=== PATIENT | female | born 1990 | race Caucasian/White ===

== ENCOUNTER 2016-09-28 06:41 | Day surgery (SDC) | payer OTHER ==
[2016-09-25 13:24] LABS: HEMATOCRIT 40.6 % (36.0-47.0); HEMOGLOBIN 13.7 g/dL (12.0-15.5); HGB HCT DIFFERENCE 0.5; MEAN CORPUSCULAR HGB CONC 33.8 g/dL (32.0-36.0); MEAN CORPUSCULAR VOLUME 89 fl (80-97); RED BLOOD COUNT 4.58 10^6/uL (3.72-5.28); RED CELL DISTRIBUTION WIDTH 12.9 % (11.5-14.0); WHITE BLOOD COUNT 8.1 10^3/uL (4.0-10.5)
[2016-09-25 13:25] LABS: APPEARANCE,URINE CLEAR; BILIRUBIN,URINE NEGATIVE (NEGATIVE); GLUCOSE, URINE NEGATIVE (NEGATIVE); KETONES,URINE NEGATIVE (NEGATIVE); LEUKOCYTE ESTERASE,URINE NEGATIVE (NEGATIVE); NITRITE,URINE NEGATIVE (NEGATIVE); PROTEIN,URINE NEGATIVE (NEGATIVE); URINE SPECIFIC GRAVITY 1.005; UROBILINOGEN,URINE NEGATIVE mg/dL (<2.0)
--- NOTE | 2016-09-25 15:32 | EKG REPORT ---
SEVERITY:- NORMAL ECG - SINUS RHYTHM : Confirmed by: Clarence Horta MD 25-Sep-2016 15:31:49
[~2016-09-28 06:41] MED LIST: LACTATED RINGERS 1000 ML IV PRN; LIDOCAINE 0.5% INJ-PF (5 MG/ML) 50 ML SDV SUBCUT PRN
[2016-09-28] MEDS ORDERED: MIDAZOLAM 2 MG/2 ML INJ ONE (08:35)
[2016-09-28] MEDS ORDERED: FENTANYL CITRATE INJ/PF 100 MCG/2 ML AMPUL ONE (08:35)
[2016-09-28] MEDS ORDERED: PROPOFOL INJ 200 MG/20 ML VIAL IV ONE (08:36)
[2016-09-28] MEDS ORDERED: DEXAMETHASONE SOD PHOSPHATE INJ 4 MG/1 ML VIAL ONE (08:36)
[2016-09-28] MEDS ORDERED: ONDANSETRON HCL INJ/PF 4 MG/2 ML SDV ONE (08:36)
[2016-09-28] MEDS ORDERED: MORPHINE SULFATE 10 MG/ML INJ IV PRN (09:02)
[2016-09-28] MEDS ORDERED: DIPHENHYDRAMINE HCL 50 MG/ML VIAL IV PRN (09:02)
[2016-09-28] MEDS ORDERED: CEFAZOLIN INJ 1 GM VIAL ONE (09:02)
[2016-09-28] MEDS ORDERED: PROMETHAZINE HCL INJ 25 MG/1 ML VIAL IV PRN ×2 (09:02)
[2016-09-28] MEDS ORDERED: MEPERIDINE HCL/PF INJ 25 MG/1 ML DISP.SYRIN IV PRN (09:02)
[2016-09-28] MEDS ORDERED: FENTANYL CITRATE INJ/PF 100 MCG/2 ML AMPUL IV PRN ×3 (09:02)
[2016-09-28] MEDS ORDERED: OXYCODONE-ACETAMINOPHEN 5-325 MG TABLET PO PRN ×2 (09:02)
[2016-09-28] MEDS ORDERED: ACETAMINOPHEN 100 ML IV ONE (09:45)
[2016-09-28] MEDS ORDERED: OXYCODONE HCL IR 5 MG TABLET PO PRN ×2 (10:30)
[2016-09-28] MEDS ORDERED: IBUPROFEN 800 MG TABLET PO PRN (10:30)
[2016-09-28] MEDS ORDERED: RINGERS SOLUTION,LACTATED 1,000 ML IV PRN (10:30)
[2016-09-28] MEDS ORDERED: HYDROMORPHONE HCL INJ/PF 2 MG/ML AMPULE IV PRN (10:30)
--- NOTE | 2016-09-28 10:38 | OPERATIVE REPORT E ---
Operative Report NAME: JAMIE HILL : 1990 AGE: 26Y DATE OF SURGERY: 09/28/2016 ROOM: PREOPERATIVE DIAGNOSIS: ABNORMAL UTERINE BLEEDING. POSTOPERATIVE DIAGNOSIS: ABNORMAL UTERINE BLEEDING. OPERATION: Hysteroscopy with dilatation and curettage. SURGEON: GALI HUTCHINS M.D. ANESTHESIA: General. ESTIMATED BLOOD LOSS: 5 mL. FINDINGS: Retroverted uterus, slightly irregular tissue in the lower uterine segment. Possible polyp, will rule out hyperplastic tissue. DESCRIPTION OF PROCEDURE: After discussing risks, benefits and alternatives of the procedure and obtaining informed consent, the patient was taken to the operating room where general anesthesia was achieved. She was positioned in the dorsal lithotomy position, prepped and draped in the usual standard fashion. Bladder was drained via in-and-out catheterization. The speculum was placed in the vagina. A single-tooth tenaculum was placed on the inferior aspect of the cervix as the uterus was retroverted. The cervix was then serially dilated to allow for passage of the MyoSure scope. The hysteroscope was placed and the cavity surveyed. The hysteroscope was removed and the cavity was curetted until it felt clean. The hysteroscope was replaced and the cavity was confirmed to be clean. The tenaculum was removed and hemostasis assured. Instruments were removed from the vagina. The patient was awakened from anesthesia and taken out of dorsal lithotomy position. She was taken to recovery in stable condition. DICTATING PHYSICIAN: GALI HUTCHINS M.D. [id number] PHY#: [id number] ID: [id number] JOB#: [id number] ACCT: [id number] cc:GALI HUTCHINS M.D. >
[2016-09-28 11:15] VITALS: BP 102/61
[2016-09-28] MEDS ORDERED: KETOROLAC TROMETHAMINE 60 MG/2 ML SDV ONE (14:24)
== END 2016-09-28 11:10 | disposition home or self-care (01) ==
LOC: OROUT 06:41
PROVIDERS: ATTEND Specialist
PROC: 0UDB8ZX Extraction of Endometrium, Via Natural or Artificial Opening Endoscopic, Diagnostic (ICD-10-PCS; principal; 2016-09-28 08:45)
DX: N93.9 Abnormal uterine and vaginal bleeding, unspecified (principal); D39.9 Neoplasm of uncertain behavior of female genital organ, unspecified
CPT/HCPCS: 93005; 36415; 85027; 81025; 81001; 88305 ×2; 93010; 58558; J2250; J0690; J1100; J1885; J3010; J2405; J2704; J0131; 952

== ENCOUNTER 2017-02-12 07:25 | Day surgery (SDC) | payer OTHER ==
[2017-02-05 11:25] LABS: HEMATOCRIT 41.2 % (36.0-47.0); HEMOGLOBIN 13.8 g/dL (12.0-15.5); HGB HCT DIFFERENCE 0.2; MEAN CORPUSCULAR HEMOGLOBIN 29.7 pg (27.0-33.4); MEAN CORPUSCULAR HGB CONC 33.6 g/dL (32.0-36.0); MEAN CORPUSCULAR VOLUME 89 fl (80-97); RED BLOOD COUNT 4.65 10^6/uL (3.72-5.28); RED CELL DISTRIBUTION WIDTH 12.5 % (11.5-14.0); WHITE BLOOD COUNT 6.1 10^3/uL (4.0-10.5)
[2017-02-05 11:27] LABS: APPEARANCE,URINE CLEAR; BILIRUBIN,URINE NEGATIVE (NEGATIVE); GLUCOSE, URINE NEGATIVE (NEGATIVE); KETONES,URINE NEGATIVE (NEGATIVE); LEUKOCYTE ESTERASE,URINE NEGATIVE (NEGATIVE); NITRITE,URINE NEGATIVE (NEGATIVE); PROTEIN,URINE NEGATIVE (NEGATIVE); URINE SPECIFIC GRAVITY 1.012; UROBILINOGEN,URINE NEGATIVE mg/dL (<2.0)
[2017-02-05 11:49] LABS: ALANINE AMINOTRANSFERASE 22 U/L (9-52); ALBUMIN 4.4 g/dL (3.5-5.0); ALKALINE PHOSPHATASE 56 U/L (38-126); ANION GAP 10 (5-19); ASPARTATE AMINO TRANSFERASE 15 U/L (14-36); BILIRUBIN,DIRECT 0.2 mg/dL (0.0-0.4); BILIRUBIN,TOTAL 0.6 mg/dL (0.2-1.3); BLOOD UREA NITROGEN 11 mg/dL (7-20); CALCIUM 10.4 mg/dL (8.4-10.2); CARBON DIOXIDE 27 mmol/L (22-30); CHLORIDE 103 mmol/L (98-107); CREATININE RESULT 0.64 mg/dL (0.52-1.25); GLUCOSE 88 mg/dL (75-110); POTASSIUM 4.6 mmol/L (3.6-5.0); SODIUM 140.4 mmol/L (137-145); TOTAL PROTEIN 8.2 g/dL (6.3-8.2)
[~2017-02-12 07:25] MED LIST changes: +CEFAZOLIN 2 GM/D5W RTU 2 GM/50 ML RTUPB IV PRN
[2017-02-12] MEDS ORDERED: BUPIVACAINE HCL 0.25% /EPINEPHRINE INJ/PF 30 ML SDV ONE (07:26)
[2017-02-12] MEDS ORDERED: FENTANYL CITRATE INJ/PF 250 MCG/5 ML AMPULE ONE (09:29)
[2017-02-12] MEDS ORDERED: EPHEDRINE SULFATE INJ 50 MG/1 ML AMPULE ONE (09:30)
[2017-02-12] MEDS ORDERED: MIDAZOLAM 2 MG/2 ML INJ ONE (09:30)
[2017-02-12] MEDS ORDERED: PROPOFOL INJ 200 MG/20 ML VIAL IV ONE (09:30)
[2017-02-12] MEDS ORDERED: ACETAMINOPHEN 100 ML IV ONE (09:31)
[2017-02-12] MEDS ORDERED: MORPHINE SULFATE 10 MG/ML INJ ONE (09:31)
[2017-02-12] MEDS ORDERED: MORPHINE SULFATE 10 MG/ML INJ IV PRN (10:14)
[2017-02-12] MEDS ORDERED: FENTANYL CITRATE INJ/PF 100 MCG/2 ML AMPUL IV PRN ×3 (10:14)
[2017-02-12] MEDS ORDERED: DIPHENHYDRAMINE HCL 50 MG/ML VIAL IV PRN (10:14)
[2017-02-12] MEDS ORDERED: MEPERIDINE HCL/PF INJ 25 MG/1 ML DISP.SYRIN IV PRN (10:14)
[2017-02-12] MEDS ORDERED: ONDANSETRON HCL INJ/PF 4 MG/2 ML SDV IV PRN ×2 (10:14→12:37)
[2017-02-12] MEDS ORDERED: IBUPROFEN INJ 800 MG/8 ML VIAL IV ONE (11:01)
--- NOTE | 2017-02-12 11:37 | OPERATIVE REPORT E ---
Operative Report NAME: JAMIE HILL : 1990 AGE: 26Y DATE OF SURGERY: 02/12/2017 ROOM: PREOPERATIVE DIAGNOSIS: Abnormal uterine bleeding. POSTOPERATIVE DIAGNOSIS: Abnormal uterine bleeding. OPERATION PERFORMED: Total vaginal hysterectomy with bilateral salpingectomy. SURGEON: GALI HUTCHINS M.D. ANTIQUE AUTOMOBILES REPAIRER: Carlos ANESTHESIA: General endotracheal. ESTIMATED BLOOD LOSS: 150 mL. FINDINGS: Uterus was somewhat boggy and retroverted. Bilateral fallopian tubes appeared normal. There was a right hemorrhagic ovarian cyst that spontaneously drained during the procedure; this was cauterized for hemostasis. DESCRIPTION OF PROCEDURE: After discussing risks, benefits, and alternatives of the procedure and obtaining informed consent, the patient was taken to the operating room where general anesthesia was achieved. She was positioned in the dorsal lithotomy position and prepped and draped in the usual standard fashion. Holden catheter was placed to keep the bladder drained. A weighted speculum was placed in the vagina. A Armin was placed anteriorly. The cervix was grasped with 2 single-tooth tenacula. The cervical junction was injected circumferentially with 0.25% Marcaine with epinephrine. A circumferential cervical incision was made. The anterior peritoneal cavity was entered sharply and a [place] placed for protection of the bladder. Next, attention was turned to the posterior cul-de-sac. The peritoneum was identified and entered sharply. Each uterosacral ligament was grasped with a Demetrio clamp, cut, and suture ligated. A weighted speculum was placed in the posterior cul-de-sac to protect the rectum. The uterine arteries were then serially clamped, coagulated and cut with the LigaSure Impact device. This was done until the level of the fundus was approached. At that point a towel clip was placed on the posterior aspect of the uterus. The uterus was inverted. The upper pedicles were clamped with Demetrio clamps on either side. The side near the uterus was then coagulated and cut with the LigaSure Impact. A straight tie was placed around the upper pedicle on either side. An area of oozing was noted above the uterosacral ligament on either side but inferior to the upper pedicles and hemostasis was achieved with [id number] of Monocryl on either side. Using the sponge stick to push bowel away and Babcocks to grasp the distal tubes, each distal fallopian tube was grasped at the fimbriated end. The LigaSure Impact device was used to excise this on either side. Hemostasis was observed. The area of oozing on the patient's right ovary was noted and this was cauterized with the LigaSure Impact device and hemostasis noted. The long speculum was then removed and a shorter speculum placed. The peritoneum was closed with 2-0 Vicryl, taking care to close off the posterior peritoneum to prevent future enterocele formation. The uterosacral ligaments were then plicated in the midline. The cuff was closed with interrupted [id number] of 0 Monocryl. The vagina was irrigated and hemostasis assured. The weighted speculum was removed. The patient was taken out of dorsal lithotomy and extubated. She was taken to recovery in stable condition. All sponge, needle, lap and instrument counts were correct x2. DICTATING PHYSICIAN: GALI HUTCHINS M.D. [id number] PHY#: [id number] ID: [id number] JOB#: [id number] ACCT: [id number] cc:GALI HUTCHINS M.D. > MTDD
[2017-02-12] MEDS ORDERED: HYDROMORPHONE HCL INJ/PF 2 MG/ML AMPULE IV PRN ×2 (12:37)
[2017-02-12] MEDS ORDERED: OXYCODONE-ACETAMINOPHEN 5-325 MG TABLET PO PRN (12:38)
[2017-02-12] MEDS ORDERED: ONDANSETRON HCL INJ/PF 4 MG/2 ML SDV ONE (13:35)
[2017-02-12] MEDS ORDERED: LIDOCAINE 2% INJ-PF (20 MG/ML) 10 ML AMPUL ONE (13:35)
[2017-02-12] MEDS ORDERED: NEOSTIGMINE METHYLSULFATE 10 MG/10 ML VIAL ONE (13:35)
[2017-02-12] MEDS ORDERED: VECURONIUM BROMIDE INJ 10 MG VIAL IV ONE (13:35)
[2017-02-12] MEDS ORDERED: SUCCINYLCHOLINE CHLORIDE INJ 200 MG/10 ML VIAL ONE (13:35)
[2017-02-12] MEDS ORDERED: DEXAMETHASONE SOD PHOSPHATE INJ 4 MG/1 ML VIAL ONE (13:35)
[2017-02-12] MEDS ORDERED: GLYCOPYRROLATE INJ 0.4 MG/2 ML VIAL ONE (13:35)
[2017-02-12] MEDS: OXYCODONE-ACETAMINOPHEN 5-325 MG TABLET PO PRN ×2 (13:39→20:45)
[2017-02-12] MEDS ORDERED: IBUPROFEN 800 MG TABLET PO PRN (17:00)
[2017-02-12] MEDS: RINGERS SOLUTION,LACTATED 1,000 ML IV PRN (22:42)
[2017-02-13 06:42] LABS: HEMATOCRIT 34.3 % (36.0-47.0); HEMOGLOBIN 11.6 g/dL (12.0-15.5); HGB HCT DIFFERENCE 0.5; MEAN CORPUSCULAR HGB CONC 33.9 g/dL (32.0-36.0); MEAN CORPUSCULAR VOLUME 88 fl (80-97); RED BLOOD COUNT 3.88 10^6/uL (3.72-5.28); RED CELL DISTRIBUTION WIDTH 12.8 % (11.5-14.0)
[2017-02-13] MEDS: RINGERS SOLUTION,LACTATED 1,000 ML IV PRN (06:45)
[2017-02-13 07:10] LABS: ALANINE AMINOTRANSFERASE 16 U/L (9-52); ALBUMIN 3.4 g/dL (3.5-5.0); ALKALINE PHOSPHATASE 46 U/L (38-126); ANION GAP 9 (5-19); ASPARTATE AMINO TRANSFERASE 18 U/L (14-36); BILIRUBIN,DIRECT 0.3 mg/dL (0.0-0.4); BILIRUBIN,TOTAL 0.5 mg/dL (0.2-1.3); BLOOD UREA NITROGEN 4 mg/dL (7-20); CALCIUM 9.4 mg/dL (8.4-10.2); CARBON DIOXIDE 24 mmol/L (22-30); CHLORIDE 104 mmol/L (98-107); CREATININE RESULT 0.58 mg/dL (0.52-1.25); GLUCOSE 118 mg/dL (75-110); SODIUM 137.1 mmol/L (137-145); TOTAL PROTEIN 6.3 g/dL (6.3-8.2)
[2017-02-13 08:32] VITALS: BP 122/68
--- NOTE | 2017-02-13 08:59 | DISCHARGE SUMMARY E ---
Discharge Summary NAME: JAMIE HILL : 1990 AGE: 26Y ADMITTED: 02/12/2017 DISCHARGED: 02/13/2017 INDICATIONS FOR ADMISSION: Abnormal uterine bleeding. HOSPITAL COURSE: The patient is a 26-year-old para 2 who had abnormal uterine bleeding, history of endometrial polyps status post hysteroscopy D and C. Her abnormal bleeding recurred after the D and C and she wished definitive therapy with hysterectomy. She underwent total vaginal hysterectomy and bilateral salpingectomy on 02/12/2017. Postoperatively, she had adequate pain control, good urine output, and was ambulating and voiding without difficulty by the time of discharge. Her creatinine actually decreased to 0.58 which was lower than her preoperative creatinine on postoperative eval. Her hemoglobin was 11.6 and hematocrit 34.3 at the time of discharge. She had passed flatus at the time of discharge. DISCHARGE DIAGNOSIS: Abnormal bleeding status post TVH and bilateral salpingectomy DISCHARGE MEDICATIONS: The patient has prescriptions for Percocet and Motrin. DISCHARGE ACTIVITY: Pelvic rest and light activity. She has followup with me in about a week. She will follow up sooner should problems arise. DICTATING PHYSICIAN: GALI HUTCHINS M.D. [id number] PHY#: [id number] ID: [id number] JOB#: [id number] ACCT: [id number] cc:GALI HUTCHINS M.D. >
== END 2017-02-13 10:25 | disposition home or self-care (01) ==
LOC: OROUT 07:25 → 2N 12:19 → OROUT 02-13 10:25
PROVIDERS: ATTEND Specialist
PROC: 0UTC7ZZ Resection of Cervix, Via Natural or Artificial Opening (ICD-10-PCS; 2017-02-12)
PROC: 0UT77ZZ Resection of Bilateral Fallopian Tubes, Via Natural or Artificial Opening (ICD-10-PCS; 2017-02-12)
PROC: 0UT97ZZ Resection of Uterus, Via Natural or Artificial Opening (ICD-10-PCS; principal; 2017-02-12 09:30)
DX: N93.9 Abnormal uterine and vaginal bleeding, unspecified (principal); N83.8 Other noninflammatory disorders of ovary, fallopian tube and broad ligament; D64.9 Anemia, unspecified
CPT/HCPCS: 86900; 86901; 36415 ×2; 86850; 85027 ×2; 81025; 80053 ×2; 81001; 88307 ×2; 58262; J2250; J3490 ×3; J1100; J3010; J0330; J2405; J7120 ×2; J2704; J0690; J0131; J1741; 944; J2270